=== PATIENT | male | born 1975 | race Asian ===

== ENCOUNTER 2023-08-01 18:13 | Emergency (ER) | payer OTHER ==
[2023-08-01 18:25] VITALS: BP 118/84; PULSE 86; RESP 16; TEMP 98.4; BMI 29.4
[2023-08-01] MEDS ORDERED: KETOROLAC TROMETHAMINE 30 MG/1 ML VIAL IM ONE (20:17)
[2023-08-01] MEDS ORDERED: KETOROLAC TROMETHAMINE 30 MG/1 ML VIAL ONE (20:20)
== END 2023-08-01 23:10 | disposition home or self-care (01) ==
LOC: JERFT 18:13
PROC: 3E0233Z Introduction of Anti-inflammatory into Muscle, Percutaneous Approach (ICD-10-PCS; principal; 2023-08-01)
DX: M25.522 Pain in left elbow (principal); X50.0XXA Overexertion from strenuous movement or load, initial encounter
CPT/HCPCS: 73070-TC-LT-FY; 99284-25